=== PATIENT | female | born 1990 | race African-American/Black ===

== ENCOUNTER 2024-07-28 05:37 | Emergency (ER) | payer SELFPAY ==
[~2024-07-28] VITALS: Ht 157.5 cm; Wt 49.1 kg
[2024-07-28] MEDS: ONDANSETRON ODT 4 MG TAB PO ONE (06:53)
[2024-07-28 07:01] VITALS: BP 97/55; PULSE 89; RESP 16; O2SAT 99
--- NOTE | 2024-07-28 07:14 | ED.PDOC ---
History of Present Illness HPI Comments 33 y/o F, with a Hx of GERD and hiatal hernia, presents with c/o abdominal pain, nausea, vomiting, and diarrhea since 2200, last night, today. Patient endorses on progressively worsening symptoms since onset. Patient admits to possible spoiled food intake being the cause of symptoms after consuming "[employer]" at around 1900, last night, prior to their onset. Patient also reports having "hot" sensation onset with other symptoms. Patient reports no recent travel, sick contact, unfiltered water consumption, or substance use/exposure along with any additional relevant or pertinent Hx. She refutes being , currently, with LMP stated to be on 07/17/24, with a Hx of regular periods. She denies having any hematemesis, constipation, bloody-stools, urinary symptoms, chills, or other associated symptoms or modifiers at this time. Chief Complaint: Diarrhea Time Seen by MD: 06:30 Reviewed Notes: Nurses Notes, Medications, Allergies Allergies: Coded Allergies: Omeprazole (Verified Allergy, Unknown, 07/28/24) Home Meds Active Scripts Ondansetron Odt 4MG Tab (ZOFRAN PO) 4 Mg Tb, 4 MG PO Q8HPRN PRN, #10 TAB ODT TAB-DISSOLVE IN MOUTH, THEN SWALLOW Prov:PAU BAEZ MD 07/28/24 Information Source: Patient Mode of Arrival: Ambulatory Severity: Moderate Timing: Hours Duration: Since onset Prehospital treatment: None Past Medical History PAST MEDICAL HISTORY: GERD Past Medical History (Other): current hiatal hernia Surgical History: Denies all surgeries [employer]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 Family History Family History: Unknown Social History Smoker: Non-Smoker Alcohol: Denies ETOH Use Drugs: Denies Drug Use Lives In: Home Constitutional: denies: chills, diaphoresis, fatigue, fever, malaise, sweats, weakness, others EENTM: denies: blurred vision, double vision, ear bleeding, ear discharge, ear drainage, ear pain, ear ringing, eye pain, eye redness, hearing loss, mouth pain, mouth swelling, nasal discharge, nose bleeding, nose congestion, nose pain, photophobia, tearing, throat pain, throat swelling, voice changes, others Respiratory: denies: cough, hemoptysis, orthopnea, SOB at rest, shortness of breath, SOB with excertion, stridor, wheezing, others Cardiovascular: denies: chest pain, dizzy spells, diaphoresis, Dyspnea on exertion, edema, irregular heart beat, left arm pain, lightheadedness, palpitations, PND, syncope, others Gastrointestinal: reports: abdominal pain, diarrhea, nausea, vomiting; denies: abdomen distended, blood streaked bowels, constipated, dysphagia, difficulty swallowing, hematemesis, melena, poor appetite, poor fluid intake, rectal bleeding, rectal pain, others Genitourinary: denies: abnormal vagina bleeding, burning, dyspareunia, dysuria, flank pain, frequency, hematuria, incontinence, pain, , vagina discharge, urgency, others Neurological: denies: dizziness, fainting, headache, left sided numbness, left sided weakness, numbness, paresthesia, pre-existing deficit, right sided numbness, right sided weakness, seizure, speech problems, tingling, tremors, wea kness, others Musculoskeletal: denies: back pain, gout, joint pain, joint swelling, muscle pain, muscle stiffness, neck pain, others Integumetry: denies: bruises, change in color, change in hair/nails, dryness, l aceration, lesions, lumps, rash, wounds, others Allergic/Immunocompromised: denies: Difficulty Healing, Frequent Infections, Hives, Itching, others Hematologic/Lymphatic: denies: anemia, blood clots, easy bleeding, easy bruising, swollen glands, others Endocrine: denies: excessive hunger, excessive sweating, excessive thirst, excessive urination, flushing, intolerance to cold, intolerance to heat, unexplained weight gain, unexplained weight loss, others Psychiatric: denies: anxiety, bipolar disorder, depression, hopeless, panic disorder, schizophrenia, sleepless, suicidal, others All Other Systems: Reviewed and Negative Physical Exam General Appearance: No Apparent Distress, Normal HEENT: Normal ENT Inspection, Pharynx Normal, TMs Normal Neck: Full Range of Motion, Non-Tender, Normal, Normal Inspection Respiratory: Chest Non-Tender, Lungs Clear, No Accessory Muscle Use, No Respiratory Distress, Normal Breath Sounds Cardiovascular: No Edema, No JVD, No Murmur, No Gallop, Normal Peripheral Pulses, Regular Rate/Rhythm Breast Exam: Deferred Gastrointestinal: No Organomegaly, Non Tender, No Pulsatile Mass, Normal Bowel Sounds, Soft Genitalia: Deferred Pelvic: Deferred Rectal: Deferred Extremities: No calf tenderness, Normal capillary refill, Normal inspection, Normal range of motion, Non-tender, No pedal edema Musculoskeletal : Apperance: Normal Neurologic: Alert, hand cloth cutter II-XII nml as Tested, No Motor Deficits, Normal Affect, Normal Mood, No Sensory Deficits Cerebellar Function: Normal Reflexes: Normal Skin: Dry, Normal Color, Warm Lymphatic: No Adenopathy Was a procedure done? Was a procedure done?: No Differential Dx Considerations may include: gastritis, gastroenteritis, PUD, GERD, spoiled food, , cholelithiasis, cholecystitis X-Ray, Labs, Meds, VS Vital Signs Date Time Temp Pulse Resp B/P (MAP) Pulse Ox O2 Delivery O2 Flow Rate FiO2 07/28/24 07:01 89 16 97/55 (69) 99 07/28/24 07:01 89 16 99 Room Air* 0 21 07/28/24 05:44 98.1 79 17 115/67 (83) 98 Current Medications Medications (Trade) Dose Ordered Sig/Joseph Route Start Time Stop Time Status Last Admin Ondansetron HCl (Zofran Po) 4 mg ONCE ONCE PO 07/28/24 07:00 07/28/24 07:01 DC 07/28/24 06:53 33-year-old female presents here with nausea vomiting diarrhea. On my examination abdomen is soft and nontender. Suspect for food poisoning versus viral illness. I have given him Zofran in the ER and clinically she is feeling better. I have sent a prescription for Zofran to her pharmacy of choice. At this time patient is generally well-appearing. Low suspicion for emergent pathology. I have discharging home. Advised her to follow up with the PCP in 2-3 days and return to the ER if symptoms worsen or persist. Time of 1ST Reevaluation: 07:00 Reevaluation 1ST: Unchanged Patient Education/Counseling: Diagnosis, Treatment Family Education/Counseling: No Family Present Departure 1 Departure Time of Disposition: 07:35 Impression: Primary Impression: Gastroenteritis Disposition: 01 HOME / SELF CARE / HOMELESS Condition: Fair e-Prescriptions Ondansetron Odt 4MG Tab (ZOFRAN PO) 4 Mg Tb 4 MG PO Q8HPRN PRN, #10 TAB ODT TAB-DISSOLVE IN MOUTH, THEN SWALLOW Prov: PAU BAEZ MD 07/28/24 Critical Care Note Critical Care Time?: No Stability Stability form required: No Heart Score Heart Score: Heart Score Response (Comments) Value History N/A 0 EKG N/A 0 Age N/A 0 Risk Factors N/A 0 Troponin N/A 0 Total 0 I personally scribed for PAU BAEZ MD ([email or web address]) on 07/28/24 at 07:14. Electronically submitted by Randy Aggarwal ([email or web address]). I personally scribed for PAU BAEZ MD ([email or web address]) on 07/28/24 at 07:28. Electronically submitted by Randy Aggarwal ([email or web address]). PAU BAEZ MD Jul 28, 2024 07:14
[2024-07-28] MEDS ORDERED: ZOFR4T PO (07:32)
== END 2024-07-28 07:42 | disposition home or self-care (01) ==
LOC: ER 05:37
DX: K52.9 Noninfective gastroenteritis and colitis, unspecified (principal); K21.9 Gastro-esophageal reflux disease without esophagitis; Z88.8 Allergy status to other drugs, medicaments and biological substances; Z79.899 Other long term (current) drug therapy
CPT/HCPCS: 99283; Q0162